=== PATIENT | male | born 1965 | race Caucasian/White ===

== ENCOUNTER 2025-01-29 12:12 | Outpatient (CLI) | payer MEDICARE, MEDICAID, SELFPAY ==
[2025-01-31 15:59] LABS: Cocklebur IgE <0.10 kU/L (<0.70); Eastern Sycamore IgE <0.10 kU/L (<0.70); Epicoccum purpurascens IgE <0.10 kU/L (<0.70); Fusarium moniliforme, IgE <0.10 kU/L (<0.70); Penicillium chrysogenum IgE <0.10 kU/L (<0.70); Red Sorrel IgE <0.10 kU/L (<0.70); Stemphyllium IgE <0.10 kU/L (<0.70); Wormwood IgE <0.10 kU/L (<0.70)
[2025-02-05 10:31] LABS: CLASS 0; Cedar Red IgE <0.10 kU/L (<0.35); Rhodotorula IgE <0.35 kU/L (<0.35)
== END 2025-01-29 12:13 | disposition home or self-care (01) ==
LOC: LBO 12:13
PROVIDERS: PCP Physician Assistant Medical; Visit Provider Physician Assistant
DX: Z91.09 Other allergy status, other than to drugs and biological substances (principal); J31.2 Chronic pharyngitis; T50.905A Adverse effect of unspecified drugs, medicaments and biological substances, initial encounter
CPT/HCPCS: 36415; 86003